=== PATIENT | female | born 1965 | race American Indian/Alaskan Native ===

== ENCOUNTER 2016-08-29 06:34 | Emergency (ER) | payer OTHER ==
[2016-08-29 07:34] LABS: Basophils % (Auto) 0.7 % (0.0-1.8); Eosinophils % (Auto) 1.5 % (0.0-4.3); Hematocrit 37.7 % (30.3-42.9); Hemoglobin 12.2 gm/dl (10.1-14.3); Mean Corpuscular HGB Conc 32 % (30-34); Mean Corpuscular Hemoglobin 28 pg (28-32); Mean Corpuscular Volume 87 fl (79-97); Platelet Count 326 K/mm3 (140-440); Red Blood Count 4.33 M/mm3 (3.65-5.03); Red Cell Distribution Width 13.5 % (13.2-15.2); White Blood Count 6.2 K/mm3 (4.5-11.0)
[2016-08-29 07:45] LABS: INR 1.05 (0.87-1.13)
[2016-08-29 07:46] LABS: Partial Thromboplastin Time 26.6 Sec. (24.2-36.6)
[2016-08-29 08:53] LABS: Creatine Kinase MB < 1.0 ng/mL (0.0-4.0)
[2016-08-29 08:55] LABS: Anion Gap 17 mmol/L; BUN/Creatinine Ratio 12.22; Blood Urea Nitrogen 11 mg/dL (7-17); Calcium 8.7 mg/dL (8.4-10.2); Carbon Dioxide 23 mmol/L (22-30); Chloride 104.7 mmol/L (98-107); Creatine Kinase 100 units/L (30-135); Glucose 113 mg/dL (65-100); Potassium 3.5 mmol/L (3.6-5.0); Sodium 141 mmol/L (137-145)
--- NOTE | 2016-08-29 09:59 | Emergency Department Report ---
ED Chest Pain HPI - General Chief Complaint: Chest Pain Stated Complaint: CHEST PAIN Time Seen by Provider: 08/29/16 09:45 Source: patient, RN notes reviewed Mode of arrival: Ambulatory Limitations: No Limitations - History of Present Illness Initial Comments: 51-year-old female presents to the emergency department complaining of chest pain. Patient states for the past 3 days she has been having intermittent, midsternal chest tightness. The chest pain does not radiate. She states the pain lasts only 5 or 6 seconds before spontaneously resolving. She states when the symptoms occurred she has numbness in both of her arms down to the elbows. She also reports difficulty breathing. She denies dizziness, diaphoresis, nausea, or vomiting. There are no other complaints. MD Complaint: chest pain -: Gradual, days(s) (3) Onset: during rest Pain Location: substernal Pain Radiation: none Severity: moderate Severity scale (0 -10): 4 Quality: tightness Consistency: intermittent Improves With: nothing Worsens With: nothing re: dyspnea. denies: nausea, vomting, diaphoresis Treatments Prior to Arrival: none Aspirin use within the Past 7 Days: (0) No - Related Data Home Medications Medication Instructions Recorded Confirmed Last Taken Levonorgestrel-Ethin Estradiol 1 tab PO DAILY 08/29/16 08/29/16 08/29/16 [Falmina-28 Tablet] Allergies Allergy/AdvReac Type Severity Reaction Status Date / Time No Known Allergies Allergy Unverified 01/29/13 19:13 JOANN score - Joann Score Age > 65: (0) No Aspirin use within the Past 7 Days: (0) No 3 or more CAD Risk Factors: (0) No 2 or more Angina events in past 24 hrs: (0) No Known CAD with more than 50% Stenosis: (0) No Elevated Cardiac Markers: (0) No ST Deviation Greater than 0.5mm: (0) No JOANN Score: 0 ED Review of Systems ROS: Stated complaint: CHEST PAIN Other details as noted in HPI Comment: All other systems reviewed and negative Respiratory: shortness of breath Cardiovascular: chest pain Neurological: paresthesias ED Past Medical Hx - Past Medical History Previous Medical History?: No - Surgical History Past Surgical History?: Yes Additional Surgical History: ear surg - Family History Family history: cancer, diabetes - Social History Smoking Status: Never Smoker Substance Use Type: Alcohol - Medications Home Medications: Home Medications Medication Instructions Recorded Confirmed Last Taken Type Levonorgestrel-Ethin Estradiol 1 tab PO DAILY 08/29/16 08/29/16 08/29/16 History [Falmina-28 Tablet] ED Physical Exam - General Limitations: No Limitations General appearance: alert, in no apparent distress - Head Head exam: Present: atraumatic, normocephalic - Eye Eye exam: Present: normal appearance, PERRL, EOMI - ENT ENT exam: Present: normal exam, normal orophraynx, mucous membranes moist - Neck Neck exam: Present: normal inspection, full ROM. Absent: tenderness - Respiratory Respiratory exam: Present: normal lung sounds bilaterally. Absent: respiratory distress, chest wall tenderness - Cardiovascular Cardiovascular Exam: Present: regular rate, normal rhythm, normal heart sounds - GI/Abdominal GI/Abdominal exam: Present: soft, normal bowel sounds. Absent: distended, tenderness - Extremities Exam Extremities exam: Present: normal inspection, full ROM. Absent: tenderness - Back Exam Back exam: Present: normal inspection, full ROM. Absent: tenderness - Neurological Exam Neurological exam: Present: alert, oriented X3. Absent: motor sensory deficit - Skin Skin exam: Present: warm, dry, intact ED Course Vital Signs 08/29/16 08/29/16 08/29/16 06:44 09:56 10:00 Temperature 98.4 F Pulse Rate 63 43 L 44 L Respiratory 18 13 13 Rate Blood Pressure 136/82 Blood Pressure 123/75 [Right] O2 Sat by Pulse 99 100 100 Oximetry 08/29/16 08/29/16 10:04 10:05 Temperature 98.1 F Pulse Rate 42 L Respiratory 13 13 Rate Blood Pressure Blood Pressure 143/72 [Right] O2 Sat by Pulse 100 100 Oximetry ED Medical Decision Making - Lab Data Result diagrams: 08/29/16 07:05 08/29/16 07:05 - EKG Data -: EKG Interpreted by Me EKG shows normal: sinus rhythm, axis, intervals, QRS complexes, ST-T waves Rate: bradycardia - EKG Data When compared to previous EKG there are: no significant change Interpretation: normal EKG, unchanged when compared t (01/29/2013) - Medical Decision Making Lab results reviewed and discussed with the patient. Patient has had a nonischemic ECG and 2 negative troponins. She has a HEART score of 1, placing her in the low risk category for major adverse cardiac events in the next 6 weeks. Patient will be discharged home at this time to follow up with her primary care physician. - Differential Diagnosis atypical chest pain, chest wall pain, anxiety Critical care attestation.: If time is entered above; I have spent that time in minutes in the direct care of this critically ill patient, excluding procedure time. ED Disposition Clinical Impression: Non-cardiac chest pain Disposition: DISCHARGED TO HOME OR SELFCARE Is pt being admited?: No Condition: Stable Instructions: Chest Pain (ED) Additional Instructions: If symptoms worsen, or if new symptoms develop, return to the emergency department. Referrals: ANGELICA KELLY JR, MD [Primary Care Provider] - 3-5 Days Time of Disposition: 10:54
[2016-08-29 10:07] VITALS: BP 136/82
[2016-08-29 10:41] LABS: Bilirubin,Urine NEG (Negative); Blood,Urine LG (Negative); Ketones,Urine NEG (Negative); Leukocyte Esterase,Urine NEG (Negative); Mucus,Urine FEW /HPF; Nitrite,Urine NEG (Negative); Urobilinogen,Urine < 2.0 mg/dL (<2.0)
== END 2016-08-29 11:20 | disposition home or self-care (01) ==
LOC: ED 06:34
DX: R07.89 Other chest pain (principal)
CPT/HCPCS: 36415; 80048; 81001; 82550; 82553; 83880; 84484; 84703; 85025; 85610; 85730; 86141; 93005; 93010; 99284

== ENCOUNTER 2019-04-17 14:09 | Emergency (ER) | payer OTHER ==
[2019-04-17] MEDS ORDERED: ASPIRIN 325 MG TAB PO ONE (14:27)
--- NOTE | 2019-04-17 14:28 | Event Note ---
ED Screening Note Date of service: 04/17/19 Time: 14:26 ED Screening Note: 54 y o female presents with sharp left sided chest pain x last night states legs tingle today This initial assessment/diagnostic orders/clinical plan/treatment(s) is/are subject to change based on patients health status, clinical progression and re- assessment by fellow clinical providers in the ED. Further treatment and workup at subsequent clinical providers discretion. Patient/guardian urged not to elope from the ED as their condition may be serious if not clinically assessed and managed. Initial orders include: lab,cxr,ekg
--- NOTE | 2019-04-17 14:58 | XRay Report ---
CHEST 1 VIEW INDICATION: Chest Pain. COMPARISON: 09/27/2014. FINDINGS: Support devices: None. Heart: Within normal limits. Lungs/Pleura: No acute air space or interstitial disease. Additional findings: None. IMPRESSION: No acute abnormality. Signer Name: Camilo Lang MD Signed: 04/17/2019 2:53 PM Workstation Name: [id number]
[2019-04-17 15:50] LABS: BUN/Creatinine Ratio 14; Blood Urea Nitrogen 13 mg/dL (7-17); Calcium 9.5 mg/dL (8.4-10.2); Hemolysis Index 11
[2019-04-17 15:53] LABS: Basophils % (Auto) 0.7 % (0.0-1.8); Eosinophils # (Auto) 0.1 K/mm3 (0.0-0.4); Hematocrit 37.2 % (30.3-42.9); Hemoglobin 12.4 gm/dl (10.1-14.3); Lymphocytes # (Auto) 1.9 K/mm3 (1.2-5.4); Lymphocytes % (Auto) 31.2 % (13.4-35.0); Mean Corpuscular HGB Conc 33 % (30-34); Mean Corpuscular Volume 86 fl (79-97); Monocytes # (Auto) 0.4 K/mm3 (0.0-0.8); Monocytes % (Auto) 6.8 % (0.0-7.3); Platelet Count 303 K/mm3 (140-440); Red Blood Count 4.33 M/mm3 (3.65-5.03); Red Cell Distribution Width 14.5 % (13.2-15.2)
[2019-04-17] MEDS ORDERED: traMADol 50 MG TAB PO ONE (19:45)
--- NOTE | 2019-04-17 20:06 | Emergency Department Report ---
ED Chest Pain HPI - General Chief Complaint: Chest Pain Stated Complaint: CHEST PX/LEGS TINGLING/LT ARM STIFF Time Seen by Provider: 04/17/19 18:41 Source: patient Mode of arrival: Ambulatory Limitations: No Limitations - History of Present Illness Initial Comments: 54 y o female presents with sharp left sided chest pain x last night, states legs tingle today, there is no sob, no n/v no back pain, no diaphoresis, no hx o cad or htn, states all symptoms started after eating spicy wings last night. MD Complaint: chest pain - Related Data Home Medications Medication Instructions Recorded Confirmed Last Taken Levonorgestrel-Ethin Estradiol 1 tab PO DAILY 08/29/16 08/29/16 08/29/16 [Falmina-28 Tablet] Previous Rx's Medication Instructions Recorded Last Taken Type Famotidine [Pepcid] 20 mg PO BID #60 tablet 04/17/19 Unknown Rx Naproxen 500 mg PO BID PRN #30 tablet 04/17/19 Unknown Rx Allergies Allergy/AdvReac Type Severity Reaction Status Date / Time No Known Allergies Allergy Unverified 01/29/13 19:13 Heart Score - HEART Score History: Slightly suspicious EKG: Normal Age: 45-65 Risk factors: No known risk factors Troponin: < normal limit HEART Score: 1 ED Review of Systems ROS: Stated complaint: CHEST PX/LEGS TINGLING/LT ARM STIFF Other details as noted in HPI Constitutional: denies: chills, fever Eyes: denies: eye pain, eye discharge, vision change ENT: denies: ear pain, throat pain Respiratory: denies: cough, shortness of breath, wheezing Cardiovascular: chest pain Endocrine: no symptoms reported Gastrointestinal: denies: abdominal pain, nausea, vomiting, diarrhea Genitourinary: denies: urgency, dysuria, discharge Musculoskeletal: denies: back pain, joint swelling, arthralgia Skin: denies: rash, lesions Neurological: denies: headache, weakness, paresthesias Psychiatric: denies: anxiety, depression Hematological/Lymphatic: denies: easy bleeding, easy bruising ED Past Medical Hx - Past Medical History Previous Medical History?: Yes Additional medical history: vaginal delivery x 1 - Surgical History Past Surgical History?: Yes Additional Surgical History: ear surg - Social History Smoking Status: Never Smoker Substance Use Type: None - Medications Home Medications: Home Medications Medication Instructions Recorded Confirmed Last Taken Type Levonorgestrel-Ethin Estradiol 1 tab PO DAILY 08/29/16 08/29/16 08/29/16 History [Falmina-28 Tablet] Famotidine [Pepcid] 20 mg PO BID #60 tablet 04/17/19 Unknown Rx Naproxen 500 mg PO BID PRN #30 tablet 04/17/19 Unknown Rx ED Physical Exam - General Limitations: No Limitations General appearance: alert, in no apparent distress - Head Head exam: Present: atraumatic, normocephalic - Eye Eye exam: Present: normal appearance, PERRL, EOMI Pupils: Present: normal accommodation - ENT ENT exam: Present: mucous membranes moist - Neck Neck exam: Present: normal inspection, full ROM. Absent: tenderness - Respiratory Respiratory exam: Present: normal lung sounds bilaterally, chest wall tenderness (left lateral chest wall pain ). Absent: respiratory distress, wheezes, rhonchi, stridor - Cardiovascular Cardiovascular Exam: Present: regular rate, normal rhythm, normal heart sounds. Absent: systolic murmur, diastolic murmur, rubs, gallop - GI/Abdominal GI/Abdominal exam: Present: soft, normal bowel sounds. Absent: distended, tenderness, guarding, rebound, rigid (left ), bruit, hernia - Rectal Rectal exam: Present: deferred - Extremities Exam Extremities exam: Present: normal inspection, full ROM, normal capillary refill. Absent: tenderness, pedal edema, joint swelling, calf tenderness - Back Exam Back exam: Present: normal inspection, full ROM. Absent: tenderness - Neurological Exam Neurological exam: Present: alert, oriented X3, CN II-XII intact, normal gait, reflexes normal - Psychiatric Psychiatric exam: Present: normal affect, normal mood - Skin Skin exam: Present: warm, dry, intact, normal color. Absent: rash ED Course Vital Signs 04/17/19 04/17/19 14:16 17:57 Temperature 98.6 F 98.1 F Pulse Rate 68 63 Respiratory 20 18 Rate Blood Pressure 137/53 Blood Pressure 127/71 [right arm] O2 Sat by Pulse 100 98 Oximetry JOANN score - Joann Score Age > 65: (0) No Aspirin use within the Past 7 Days: (0) No 3 or more CAD Risk Factors: (0) No 2 or more Angina events in past 24 hrs: (0) No Known CAD with more than 50% Stenosis: (0) No Elevated Cardiac Markers: (0) No ST Deviation Greater than 0.5mm: (0) No JOANN Score: 0 ED Medical Decision Making - Lab Data Result diagrams: 04/17/19 15:12 04/17/19 15:12 - Medical Decision Making Heart score 0 JOANN score is 0 troponins negative 2 ,pain is reproducible to palpation, plan : naproxen, when necessary chest wall pain ,Pepcid by mouth follow-up with PCP in 2-3 days ,return to ED should symptoms worsen ,patient is currently alert oriented 3 ,ambulatory. there is no shortness of breath ,no diaphoresis ,no nausea vomiting, no back pain, patient DC'd to home in stable condition with no acute distress at this time. will follow up with PCP in 2-3 days, Critical care attestation.: If time is entered above; I have spent that time in minutes in the direct care of this critically ill patient, excluding procedure time. ED Disposition Clinical Impression: Chest wall pain Chest pain Qualifiers: Chest pain type: unspecified Qualified Code(s): R07.9 - Chest pain, unspecified Disposition: DC-01 TO HOME OR SELFCARE Is pt being admited?: No Does the pt Need Aspirin: No Condition: Stable Instructions: Chest Pain (ED) Prescriptions: Naproxen 500 mg PO BID PRN #30 tablet PRN Reason: pain Famotidine [Pepcid] 20 mg PO BID #60 tablet Referrals: PRIMARY CARE, [Primary Care Provider] - 3-5 Days Forms: Work/School Release Form(ED) Time of Disposition: 20:13
[2019-04-17 20:49] VITALS: BP 120/70
== END 2019-04-17 20:50 | disposition home or self-care (01) ==
LOC: ED 14:09
DX: R07.89 Other chest pain (principal)
CPT/HCPCS: 36415; 71045; 80048; 84484; 85025; 93005; 93010

== ENCOUNTER 2020-08-15 10:29 | Outpatient (CLI) | payer OTHER ==
--- NOTE | 2020-08-15 14:12 | Mammography Report ---
DIGITAL SCREENING MAMMOGRAM WITH CAD, 08/15/2020 CLINICAL INFORMATION / INDICATION: Routine screening mammography. SCREENING MAMMO TECHNIQUE: Digital bilateral 2D mammography was obtained in the craniocaudal and mediolateral obliqu e projections. This examination was interpreted with the benefit of Computer-Aided Detection analysis . COMPARISON: 08/05/2016 through 08/15/2019. FINDINGS: Breast Density: The breasts are heterogeneously dense, which may obscure small masses. No dominant mass, suspicious calcifications, or architectural distortion in either breast. A small benign intramammary lymph node in the right upper outer quadrant has not changed. No new abno rmality is seen. IMPRESSION: No mammographic evidence of malignancy. Follow up recommendation: Routine yearly BI-RADS Category 2: Benign. A "normal" or negative report should not discourage follow up or biopsy of a clinically significant f inding. A written summary of these findings will be mailed to the patient. The patient will be entered into a mammography reporting system which will generate a reminder letter for the patient's next appointmen t at the appropriate interval. The [employer] recommends yearly mammograms starting at age 40 and continuing as l beckie as a woman is in good health. Breast MRI is recommended for women with an approximate 20-25% or greater lifetime risk of breast cancer, including women with a strong family history of breast or ova carolin cancer or who have been treated for Hodgkin's disease. Signer Name: Festus Chaney MD Signed: 08/15/2020 12:18 PM Workstation Name: [email or web address]
== END 2020-08-15 10:30 | disposition home or self-care (01) ==
LOC: SPVWC 10:29
PROVIDERS: ATTEND Surgery
DX: Z12.31 Encounter for screening mammogram for malignant neoplasm of breast (principal); N64.89 Other specified disorders of breast
CPT/HCPCS: 77067